=== PATIENT | female | born 1970 | race Two or more races ===

== ENCOUNTER 2016-07-21 11:51 | Emergency (ER) | payer MEDICARE, OTHER, SELFPAY ==
[~2016-07-21] VITALS: Ht 147.3 cm; Wt 81.6 kg
[~2016-07-21 11:51] MED LIST: ASPIRIN325 MG PO; HABITROL21 MG TOP; IMDUR30 MG PO; KLONOPIN0.5 MG PO; LIPITOR40 MG PO; LOPRESSOR25 MG PO; LOVAZA1 GM PO; NITROSTAT0.4 MG SL; NORCO 325-5 MG1 TAB PO; PROTONIX40 MG PO; RANEXA500 MG PO; VERELAN PM200 MG PO; XANAX0.25 MG PO; ZETIA10 MG PO
[2016-07-21] MEDS ORDERED: TOPROL XL25 MG PO (13:45)
[2016-07-21] MEDS ORDERED: TYLENOL500 MG PO (13:46)
[2016-07-21] MEDS ORDERED: TRAZODONE HCL150 MG PO (13:46)
== END 2016-07-21 13:50 | disposition short-term general hospital (02) ==
LOC: ER 11:51
DX: R07.9 Chest pain, unspecified (principal); F41.9 Anxiety disorder, unspecified; I25.10 Atherosclerotic heart disease of native coronary artery without angina pectoris; F17.200 Nicotine dependence, unspecified, uncomplicated; Z79.899 Other long term (current) drug therapy
CPT/HCPCS: J2060; J2270; J2405

== ENCOUNTER → 2016-07-23 | Outpatient (CLI) | payer MEDICARE, OTHER ==
[~2016-07-23] MED LIST changes: +TOPROL XL25 MG PO; +TRAZODONE HCL150 MG PO; +TYLENOL500 MG PO
== END | disposition short-term general hospital (02) ==
LOC: CLCARD 14:36
DX: R07.9 Chest pain, unspecified (principal)

== ENCOUNTER → 2016-07-26 | Outpatient (CLI) | payer MEDICARE, OTHER | END | disposition short-term general hospital (02) | LOC: CLCARD 08:42 | DX: I25.10 Atherosclerotic heart disease of native coronary artery without angina pectoris (principal); R07.9 Chest pain, unspecified; I10 Essential (primary) hypertension; E78.5 Hyperlipidemia, unspecified; M79.7 Fibromyalgia; R53.83 Other fatigue; Z72.0 Tobacco use; Z95.5 Presence of coronary angioplasty implant and graft ==

== ENCOUNTER → 2016-08-13 | Outpatient (CLI) | payer MEDICARE, OTHER, SELFPAY | END | disposition short-term general hospital (02) | LOC: CLCARD 07-30 09:45 | DX: I25.10 Atherosclerotic heart disease of native coronary artery without angina pectoris (principal); I10 Essential (primary) hypertension; E78.5 Hyperlipidemia, unspecified; M79.7 Fibromyalgia; R53.83 Other fatigue; Z72.0 Tobacco use; Z95.5 Presence of coronary angioplasty implant and graft ==